=== PATIENT | male | born 1975 | race Caucasian/White ===

== ENCOUNTER 2019-11-14 22:41 | Inpatient (IN) | payer BC ==
[~2019-11-14] VITALS: Ht 188 cm; Wt 104.5 kg
[2019-11-14 23:13] LABS: BASO # 0.1 x10^3/uL (0.0-0.2); BASO % 1 % (0-3); EOS # 0.3 x10^3/uL (0.0-0.7); EOS % 2 % (0-3); HEMATOCRIT 48.9 % (39.0-53.0); HEMOGLOBIN 17.1 g/dL (13.0-17.5); LYMPH # 3.6 x10^3/uL (1.0-4.8); LYMPH % 27 % (24-48); MEAN CORPUSCULAR HEMOGLOBIN 32 pg (25-35); MEAN CORPUSCULAR HGB CONC 35 g/dL (31-37); MEAN CORPUSCULAR VOLUME 90 fL (79-100); MONO # 1.1 x10^3/uL (0.0-1.1); MONO % 8 % (0-9); NEUT # 8.4 x10^3/uL (1.8-7.7); NEUT % 62 % (31-73); PLATELET COUNT 227 x10^3/uL (140-400); RED BLOOD COUNT 5.41 x10^6/uL (4.30-5.70); RED CELL DISTRIBUTION WIDTH 13.1 % (11.5-14.5); WHITE BLOOD COUNT 13.4 x10^3/uL (4.0-11.0)
[2019-11-14 23:23] LABS: PROTHROMBIN TIME PATIENT 12.3 SEC (11.7-14.0)
[2019-11-14 23:27] LABS: CALCIUM 9.6 mg/dL (8.5-10.1); CREATININE 0.8 mg/dL (0.7-1.3); POTASSIUM 3.5 mmol/L (3.5-5.1)
[2019-11-14] MEDS ORDERED: IV NORMAL SALINE 1000ML BAG 1,000 ML IV ONE (23:30)
[2019-11-14] MEDS ORDERED: fentaNYL PF VIAL 100 MCG/2 ML VIAL IVP ONE (23:30)
[2019-11-14] MEDS ORDERED: ONDANSETRON PF 4 MG/2 ML VIAL. IVP ONE (23:30)
[2019-11-14] MEDS ORDERED: FAMOTIDINE 20 MG/2 ML VIAL IVP ONE (23:30)
[2019-11-14 23:33] LABS: ALBUMIN 3.9 g/dL (3.4-5.0); ALBUMIN/GLOBULIN RATIO 1.1 (1.0-1.7); MAGNESIUM 2.2 mg/dL (1.8-2.4); TOTAL BILIRUBIN 0.4 mg/dL (0.2-1.0); TOTAL PROTEIN 7.3 g/dL (6.4-8.2)
[2019-11-14 23:40] LABS: CREATINE KINASE 39 U/L (39-308)
--- NOTE | 2019-11-15 00:42 | RAD ---
Limited abdomen ultrasound HISTORY: Right upper quadrant abdominal pain. FINDINGS: Most of the pancreas, aorta and IVC are obscured by bowel gas shadowing, visualized segments are grossly normal. Increased liver echogenicity likely steatosis. No liver mass or nodularity documented. Hepatopedal portal vein blood flow is present. Tiny gallstones and sludge in the gallbladder. No distention or inflammatory change of the gallbladder documented. No biliary ductal dilation common bile duct diameter is 3 mm. Spleen and left kidney were not evaluated. Right renal length 12.7 cm, no right renal mass or necrosis documented. IMPRESSION: 1. Gallbladder sludge and small gravel-type stones. No inflammatory changes of the gallbladder evident. No biliary ductal dilation. 2. Increased liver echogenicity likely steatosis. Electronically signed by: Anastacio Shearer MD (11/15/2019 12:39 AM) [facility]
[2019-11-15] MEDS ORDERED: IV NORMAL SALINE 1000ML BAG 1,000 ML IV ONE ×2 (01:00→01:30)
[2019-11-15] MEDS ORDERED: HYDROmorphone 2 MG/ML VIAL IV ONE (01:00)
[2019-11-15 01:02] LABS: BILIRUBIN,URINE NEGATIVE (NEG); CLARITY,URINE CLEAR; COLOR,URINE YELLOW; NITRITE,URINE NEGATIVE (NEG); PH,URINE 6.5; PROTEIN,URINE NEGATIVE (NEG-TRACE)
[2019-11-15 01:09] LABS: AMPHETAMINE/METHAMPHETAMINE NEG (NEG); BARBITURATES NEG (NEG); BENZODIAZEPINES NEG (NEG); CANNABINOIDS NEG (NEG); COCAINE NEG (NEG); METHADONE NEG (NEG); OPIATES NEG (NEG); PHENCYCLIDINE NEG (NEG)
[2019-11-15 01:10] LABS: BACTERIA,URINE 0 /HPF (0-FEW); RBC,URINE RARE /HPF (0-2); SQUAMOUS EPITHELIAL CELL,UR OCC /LPF; WBC,URINE RARE /HPF (0-4)
--- NOTE | 2019-11-15 01:13 | PHYS DOC ---
Past Medical History Past Medical History: Diabetes-Type II, High Cholesterol, Hypertension Past Surgical History: Tonsillectomy Alcohol Use: None Drug Use: None Adult General Chief Complaint Chief Complaint: ABDOMINAL PAIN HPI HPI Patient is a 44 year old male with history of diabetes type 2, hypertension, high cholesterol, who presents to the ED today complaining of 9 out of 10 right upper quadrant abdominal pain radiating to his flank region into his right shoulder, symptoms began 3 days ago. Patient denies any nausea/ vomiting. He reports symptoms are worse after eating. Denies anything relieving the symptoms. He states is usually tough on pain but this pain has gotten so bad he could not take it anymore. Review of Systems Review of Systems Constitutional: Denies fever or chills [] Eyes: Denies change in visual acuity, redness, or eye pain [] HENT: Denies nasal congestion or sore throat [] Respiratory: Denies cough or shortness of breath [] Cardiovascular: No additional information not addressed in HPI [] GI: Reports right upper quadrant abdominal pain, denies nausea, vomiting, bloody stools or diarrhea [] : Denies dysuria or hematuria [] Musculoskeletal: Denies back pain or joint pain [] Integument: Denies rash or skin lesions [] Neurologic: Denies headache, focal weakness or sensory changes [] All other systems were reviewed and found to be within normal limits, except as documented in this note. Current Medications Current Medications Current Medications Medications (Trade) Dose Ordered Sig/Alta Start Time Stop Time Status Last Admin Dose Admin Famotidine (Pepcid Vial) 20 mg 1X ONCE 11/14/19 23:30 11/14/19 23:31 DC 11/14/19 23:17 20 MG Fentanyl Citrate (Fentanyl 2ml Vial) 50 mcg 1X ONCE 11/14/19 23:30 11/14/19 23:31 DC 11/14/19 23:17 50 MCG Hydromorphone HCl (Dilaudid) 1 mg 1X ONCE 11/15/19 01:00 11/15/19 01:01 DC 11/15/19 00:58 1 MG Ondansetron HCl (Zofran) 4 mg 1X ONCE 11/14/19 23:30 11/14/19 23:31 DC 11/14/19 23:16 4 MG Piperacillin Sod/ Tazobactam Sod 3.375 gm/Sodium Chloride 50 ml @ 100 mls/hr 1X ONCE 11/15/19 01:30 11/15/19 01:59 Sodium Chloride 1,000 ml @ 1,000 mls/hr 1X ONCE 11/15/19 01:00 11/15/19 01:59 Allergies Allergies Allergies Coded Allergies Type Severity Reaction Last Updated Verified No Known Drug Allergies 11/14/19 No Physical Exam Physical Exam Constitutional: Well developed, well nourished, no acute distress, non-toxic appearance. [] HENT: Normocephalic, atraumatic, bilateral external ears normal, oropharynx moist, no oral exudates, nose normal. [] Eyes: PERRLA, EOMI, conjunctiva normal, no discharge. [] Neck: Normal range of motion, no tenderness, supple, no stridor. [] Cardiovascular:Heart rate regular rhythm, no murmur [] Lungs & Thorax: Bilateral breath sounds clear to auscultation [] Abdomen: Bowel sounds normal, soft, moderate tenderness on palpation of the epigastric region as well as the right upper quadrant, no right lower quadrant or left lower quadrant or left upper quadrant tenderness, positive Dyer sign, negative psoas sign, negative obturator sign, negative Rovsing sign, no masses, no pulsatile masses. [] Skin: Warm, dry, no erythema, no rash. [] Back: No tenderness, no CVA tenderness. [] Extremities: No tenderness, no cyanosis, no clubbing, ROM intact, no edema. [] Neurologic: Alert and oriented X 3, normal motor function, normal sensory function, no focal deficits noted. [] Psychologic: Affect normal, judgement normal, mood normal. [] Current Patient Data Vital Signs Vital Signs Date Time Temp Pulse Resp B/P (MAP) Pulse Ox O2 Delivery O2 Flow Rate FiO2 11/15/19 00:58 16 96 Room Air 11/14/19 23:00 98.4 100 165/92 (116) 98.4 Lab Values Laboratory Tests Test 11/14/19 23:00 11/14/19 23:06 Prothrombin Time 12.3 SEC (11.7-14.0) Prothrombin Time INR 0.9 (0.8-1.1) Sodium Level 141 mmol/L (136-145) Potassium Level 3.5 mmol/L (3.5-5.1) Chloride Level 101 mmol/L (98-107) Carbon Dioxide Level 30 mmol/L (21-32) Anion Gap 10 (6-14) Blood Urea Nitrogen 14 mg/dL (8-26) Creatinine 0.8 mg/dL (0.7-1.3) Estimated GFR (Cockcroft-Gault) 105.0 BUN/Creatinine Ratio 18 (6-20) Glucose Level 261 mg/dL (70-99) H Calcium Level 9.6 mg/dL (8.5-10.1) Magnesium Level 2.2 mg/dL (1.8-2.4) Total Bilirubin 0.4 mg/dL (0.2-1.0) Aspartate Amino Transferase (AST) 14 U/L (15-37) L Alanine Aminotransferase (ALT) 31 U/L (16-63) Alkaline Phosphatase 92 U/L (46-116) Creatine Kinase 39 U/L (39-308) Creatine Kinase MB (Mass) 0.8 ng/mL (0.0-3.6) Creatine Kinase MB Relative Index % (0-4) Troponin I Quantitative < 0.017 ng/mL (0.000-0.055) DJ-Bxc-B-Type Natriuretic Peptide 31 pg/mL (0-124) Total Protein 7.3 g/dL (6.4-8.2) Albumin 3.9 g/dL (3.4-5.0) Albumin/Globulin Ratio 1.1 (1.0-1.7) Lipase 76296 U/L (73-393) H Thyroid Stimulating Hormone (TSH) 2.591 uIU/mL (0.358-3.74) Ethyl Alcohol Level < 10 mg/dL (0-10) White Blood Count 13.4 x10^3/uL (4.0-11.0) H Red Blood Count 5.41 x10^6/uL (4.30-5.70) Hemoglobin 17.1 g/dL (13.0-17.5) Hematocrit 48.9 % (39.0-53.0) Mean Corpuscular Volume 90 fL (79-100) Mean Corpuscular Hemoglobin 32 pg (25-35) Mean Corpuscular Hemoglobin Concent 35 g/dL (31-37) Red Cell Distribution Width 13.1 % (11.5-14.5) Platelet Count 227 x10^3/uL (140-400) Neutrophils (%) (Auto) 62 % (31-73) Lymphocytes (%) (Auto) 27 % (24-48) Monocytes (%) (Auto) 8 % (0-9) Eosinophils (%) (Auto) 2 % (0-3) Basophils (%) (Auto) 1 % (0-3) Neutrophils # (Auto) 8.4 x10^3/uL (1.8-7.7) H Lymphocytes # (Auto) 3.6 x10^3/uL (1.0-4.8) Monocytes # (Auto) 1.1 x10^3/uL (0.0-1.1) Eosinophils # (Auto) 0.3 x10^3/uL (0.0-0.7) Basophils # (Auto) 0.1 x10^3/uL (0.0-0.2) Laboratory Tests 11/14/19 23:06 Laboratory Tests 11/14/19 23:00 EKG EKG [] Radiology/Procedures Radiology/Procedures []PROCEDURE: ABDOMEN LTD Limited abdomen ultrasound HISTORY: Right upper quadrant abdominal pain. FINDINGS: Most of the pancreas, aorta and IVC are obscured by bowel gas shadowing, visualized segments are grossly normal. Increased liver echogenicity likely steatosis. No liver mass or nodularity documented. Hepatopedal portal vein blood flow is present. Tiny gallstones and sludge in the gallbladder. No distention or inflammatory change of the gallbladder documented. No biliary ductal dilation common bile duct diameter is 3 mm. Spleen and left kidney were not evaluated. Right renal length 12.7 cm, no right renal mass or necrosis documented. IMPRESSION: 1. Gallbladder sludge and small gravel-type stones. No inflammatory changes of the gallbladder evident. No biliary ductal dilation. 2. Increased liver echogenicity likely steatosis. Electronically signed by: Joana Shearer MD (11/15/2019 12:39 AM) [facility] DICTATED and SIGNED BY: JOANA SHEARER MD DATE: 11/15/19 0039 Course & Med Decision Making Course & Med Decision Making Pertinent Labs and Imaging studies reviewed. (See chart for details) This is a 44-year-old male patient presented to the ED today complaining of right upper quadrant abdominal pain for 3 days. CBC with a WBC of 13.4, CMP with glucose of 261 anion gap is normal. Right upper quadrant abdominal ultrasound was noted for gallbladder sludge as well as gallstones. Lipase 26,795. IV fluids were initiated in the emergency room, 2 L ordered. Patient was given fentanyl with no relief, Dilaudid was ordered Spoke with Dr. Perez who accepted patient for admission Spoke with Dr. Martinez who will follow-up with patient in the morning. Nothing by mouth We did put a call for GI no return call yet. Dragon Disclaimer Dragon Disclaimer This electronic medical record was generated, in whole or in part, using a voice recognition dictation system. Departure Departure Impression: Primary Impression: Gallstone pancreatitis Disposition: HOME, SELF-CARE Condition: STABLE Referrals: KYLEE PEREZ MD (PCP) JULIO MARTIN NON DESTRUCTIVE EVALUATION SPECIALIST Nov 15, 2019 01:13
[2019-11-15] MEDS ORDERED: HYDROmorphone 2 MG/ML VIAL IV PRN (01:15)
[2019-11-15] MEDS ORDERED: ONDANSETRON PF 4 MG/2 ML VIAL. IV PRN (01:15)
[2019-11-15] MEDS ORDERED: PIPERACILLIN/TAZOBACTAM 3.375 GM in IV NORMAL SALINE 50ML 50 ML IV ONE (01:30)
--- NOTE | 2019-11-15 03:54 | NUR ---
ADMISSION NOTE The patient, JOELLE GALINDO, 44 y/o, M admitted by KYLEE PEREZ MD, was given written information regarding hospital policies, unit procedures and contact persons. Pt arrived to room 560 via wheelchair accompanied by ED staff. Flu shot offered and declined at this time. Pt resting comfortably in bed, VSS, no further complaints at this time. Valuables were checked and left at bedside with patient.
[2019-11-15 05:26] VITALS: BP 168/115
[2019-11-15 07:59] VITALS: BP 115/65
--- NOTE | 2019-11-15 10:41 | EKG ---
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
--- NOTE | 2019-11-15 10:46 | HP ---
ADMIT DATE: 11/15/2019 CHIEF COMPLAINT AND HISTORY OF PRESENT ILLNESS: This 44-year-old white male admitted through the Emergency Room with pancreatitis, felt due to gallstone pancreatitis by the Emergency Room. He had been having 2 days of severe upper abdominal pain radiating into his back, worse with eating. He thought it was bad gas. He presented to the Emergency Room where he was found to have a lipase through the roof and ultrasound showing gallbladder sludge and small gravel type stones. No inflammatory changes of the gallbladder were evident. No biliary ductal dilatation and increased liver echogenicity, likely steatosis noted on the ultrasound. White count was 13,400 with a left shift. Lipase was 26,795. Blood sugar was 261 on presentation. Troponin was negative. INR was negative. Urinalysis unremarkable. Toxicology screen negative and the patient was admitted with n.p.o. status, IV hydration and pain control. PAST MEDICAL HISTORY: Remarkable for type 2 diabetes, hypertension, hyperlipidemia. PAST SURGICAL HISTORY: Remarkable for tonsillectomy. SOCIAL HISTORY: Unremarkable. The patient is basically a lifetime nondrinker. FAMILY HISTORY: Noncontributory. MEDICATIONS: Brought with the patient listed on the computer and have been addressed. ALLERGIES: He has no known drug allergies. REVIEW OF SYSTEMS: Remarkable for the abdominal pain, which he describes as a squeezing, kind of pain again going through the back. Denies any cough, shortness of breath, changes in bowel or bladder. Denies any vomiting with it, although he has felt somewhat nauseated with it at times. Denies any urinary changes such as dysuria, frequency, urgency, hematuria. Denies any skin rash. PHYSICAL EXAMINATION: GENERAL: He is well-developed, well-nourished white male, who appears relatively comfortable, was under the influence of IV pain medicine. and children are present. VITAL SIGNS: Stable. He is afebrile. HEAD, EYES, EARS, NOSE AND THROAT: Unremarkable. There is no icterus. NECK: Supple, without adenopathy or thyromegaly. CHEST: Clear to auscultation and percussion. HEART: Regular rate and rhythm without S3, S4 or murmur. ABDOMEN: Reveals epigastric tenderness as well as some right upper quadrant tenderness. No obvious hepatosplenomegaly or masses are noted. EXTREMITIES: Without cyanosis, clubbing, edema. NEUROLOGIC: He is intact. IMPRESSION: 1. Pancreatitis. 2. Hypertension. 3. Hyperlipidemia. 4. Diabetes. PLAN: The patient has been admitted. I am going to ask GI to see the patient in consultation as well as surgery. He will have ongoing n.p.o. status, IV pain medicine, daily labs and will be monitored, managed and treated appropriately. CHAPIS PAREDES MD DR: PATRICK/vidhi JOB#: [id number] / [id number] KYLEE Shultz MD
[2019-11-15 11:59] VITALS: BP 111/70
--- NOTE | 2019-11-15 14:43 | PDOC2 ---
CONSULT Date of Consult Date of Consult DATE: 11/15/19 TIME: 14:38 Reason for Consult Reason for Consult: Abdominal pain, elevated lipase History of Present Illness Reason for Visit: This is a 44-year-old gentleman with a history of diabetes but no prior history of abdominal pain, dyspepsia, gallstones or pancreatitis. He does not drink alcohol. He was not aware of any liver disease problems in the past. He had the sudden onset of abdominal pain radiating through to the back over the past 2 days. Associated with nausea. Fevers. No jaundice. No new medications. Initial labs show an elevated lipase of 26,000 and ultrasound reveals some tiny gallstones but no evidence for common bile duct obstruction. Also showed some fatty liver changes. liver function studies were normal Past Medical History Endocrine: Diabetes Current Problem List Problem List Problems Medical Problems: (1) Gallstone pancreatitis Status: Acute Current Medications Current Medications Current Medications Ondansetron HCl (Zofran) 4 mg 1X ONCE IVP Last administered on 11/14/19at 23:16; Start 11/14/19 at 23:30; Stop 11/14/19 at 23:31; Status DC Sodium Chloride 1,000 ml @ 1,000 mls/hr 1X ONCE IV Last administered on 11/14/19at 23:16; Start 11/14/19 at 23:30; Stop 11/15/19 at 00:29; Status DC Fentanyl Citrate (Fentanyl 2ml Vial) 50 mcg 1X ONCE IVP Last administered on 11/14/19at 23:17; Start 11/14/19 at 23:30; Stop 11/14/19 at 23:31; Status DC Famotidine (Pepcid Vial) 20 mg 1X ONCE IVP Last administered on 11/14/19at 23:17; Start 11/14/19 at 23:30; Stop 11/14/19 at 23:31; Status DC Hydromorphone HCl (Dilaudid) 1 mg 1X ONCE IV Last administered on 11/15/19at 00:58; Start 11/15/19 at 01:00; Stop 11/15/19 at 01:01; Status DC Sodium Chloride 1,000 ml @ 1,000 mls/hr 1X ONCE IV Last administered on 11/15/19at 01:42; Start 11/15/19 at 01:00; Stop 11/15/19 at 01:59; Status DC Piperacillin Sod/ Tazobactam Sod 3.375 gm/Sodium Chloride 50 ml @ 100 mls/hr 1X ONCE IV Last administered on 11/15/19at 01:42; Start 11/15/19 at 01:30; Stop 11/15/19 at 01:59; Status DC Ondansetron HCl (Zofran) 4 mg PRN Q8HRS PRN IV NAUSEA/VOMITING 1ST CHOICE; Start 11/15/19 at 01:15; Stop 11/16/19 at 01:14 Hydromorphone HCl (Dilaudid) 1 mg PRN Q3HRS PRN IV SEVERE PAIN 7-10 Last administered on 11/15/19at 03:17; Start 11/15/19 at 01:15 Sodium Chloride 1,000 ml @ 125 mls/hr 1X ONCE IV Last administered on 11/15/19at 03:16; Start 11/15/19 at 01:30; Stop 11/15/19 at 09:29; Status DC Allergies Allergies: Coded Allergies: No Known Drug Allergies (Unverified , 11/14/19) Physical Exam General: Alert, Oriented X3 HEENT: Atraumatic, PERRLA Lungs: Clear to auscultation Heart: Regular rate, Normal S1, Normal S2 Abdomen: Normal bowel sounds, Soft, No hepatosplenomegaly, Other (tender in the periumbilical region) Extremities: No clubbing, No cyanosis Psych/Mental Status: Mental status NL Vitals VITALS Vital Signs Date Time Temp Pulse Resp B/P (MAP) Pulse Ox O2 Delivery O2 Flow Rate FiO2 11/15/19 11:59 98.9 89 18 111/70 (84) 92 Room Air 98.9 Labs Labs Laboratory Tests Test 11/14/19 23:00 11/14/19 23:06 11/15/19 00:20 11/15/19 03:00 Prothrombin Time 12.3 SEC (11.7-14.0) Prothromb Time International Ratio 0.9 (0.8-1.1) Sodium Level 141 mmol/L (136-145) Potassium Level 3.5 mmol/L (3.5-5.1) Chloride Level 101 mmol/L (98-107) Carbon Dioxide Level 30 mmol/L (21-32) Anion Gap 10 (6-14) Blood Urea Nitrogen 14 mg/dL (8-26) Creatinine 0.8 mg/dL (0.7-1.3) Estimated GFR (Cockcroft-Gault) 105.0 BUN/Creatinine Ratio 18 (6-20) Glucose Level 261 mg/dL (70-99) Calcium Level 9.6 mg/dL (8.5-10.1) Magnesium Level 2.2 mg/dL (1.8-2.4) Total Bilirubin 0.4 mg/dL (0.2-1.0) Aspartate Amino Transf (AST/SGOT) 14 U/L (15-37) Alanine Aminotransferase (ALT/SGPT) 31 U/L (16-63) Alkaline Phosphatase 92 U/L (46-116) Creatine Kinase 39 U/L (39-308) Creatine Kinase MB (Mass) 0.8 ng/mL (0.0-3.6) Creatine Kinase MB Relative Index % (0-4) Troponin I Quantitative < 0.017 ng/mL (0.000-0.055) VV-Qpa-I-Type Natriuretic Peptide 31 pg/mL (0-124) Total Protein 7.3 g/dL (6.4-8.2) Albumin 3.9 g/dL (3.4-5.0) Albumin/Globulin Ratio 1.1 (1.0-1.7) Lipase 88189 U/L (73-393) Thyroid Stimulating Hormone (TSH) 2.591 uIU/mL (0.358-3.74) Ethyl Alcohol Level < 10 mg/dL (0-10) White Blood Count 13.4 x10^3/uL (4.0-11.0) Red Blood Count 5.41 x10^6/uL (4.30-5.70) Hemoglobin 17.1 g/dL (13.0-17.5) Hematocrit 48.9 % (39.0-53.0) Mean Corpuscular Volume 90 fL (79-100) Mean Corpuscular Hemoglobin 32 pg (25-35) Mean Corpuscular Hemoglobin Concent 35 g/dL (31-37) Red Cell Distribution Width 13.1 % (11.5-14.5) Platelet Count 227 x10^3/uL (140-400) Neutrophils (%) (Auto) 62 % (31-73) Lymphocytes (%) (Auto) 27 % (24-48) Monocytes (%) (Auto) 8 % (0-9) Eosinophils (%) (Auto) 2 % (0-3) Basophils (%) (Auto) 1 % (0-3) Neutrophils # (Auto) 8.4 x10^3/uL (1.8-7.7) Lymphocytes # (Auto) 3.6 x10^3/uL (1.0-4.8) Monocytes # (Auto) 1.1 x10^3/uL (0.0-1.1) Eosinophils # (Auto) 0.3 x10^3/uL (0.0-0.7) Basophils # (Auto) 0.1 x10^3/uL (0.0-0.2) Urine Collection Type Unknown Urine Color Yellow Urine Clarity Clear Urine pH 6.5 Urine Specific [place] 1.010 Urine Protein Negative mg/dL (NEG-TRACE) Urine Glucose (UA) 250 mg/dL (NEG) Urine Ketones (Stick) Negative mg/dL (NEG) Urine Blood Negative (NEG) Urine Nitrite Negative (NEG) Urine Bilirubin Negative (NEG) Urine Urobilinogen Dipstick 1.0 mg/dL (0.2 mg/dL) Urine Leukocyte Esterase Negative (NEG) Urine RBC Rare /HPF (0-2) Urine WBC Rare /HPF (0-4) Urine Squamous Epithelial Cells Occ /LPF Urine Bacteria 0 /HPF (0-FEW) Urine Opiates Screen Neg (NEG) Urine Methadone Screen Neg (NEG) Urine Barbiturates Neg (NEG) Urine Phencyclidine Screen Neg (NEG) Urine Amphetamine/Methamphetamine Neg (NEG) Urine Benzodiazepines Screen Neg (NEG) Urine Cocaine Screen Neg (NEG) Urine Cannabinoids Screen Neg (NEG) Urine Ethyl Alcohol Neg (NEG) Lactic Acid Level 1.6 mmol/L (0.4-2.0) Test 11/15/19 12:42 Glucose (Fingerstick) 138 mg/dL (70-99) Laboratory Tests Test 11/14/19 23:00 11/14/19 23:06 11/15/19 00:20 11/15/19 03:00 Prothrombin Time 12.3 SEC (11.7-14.0) Prothromb Time International Ratio 0.9 (0.8-1.1) Sodium Level 141 mmol/L (136-145) Potassium Level 3.5 mmol/L (3.5-5.1) Chloride Level 101 mmol/L (98-107) Carbon Dioxide Level 30 mmol/L (21-32) Anion Gap 10 (6-14) Blood Urea Nitrogen 14 mg/dL (8-26) Creatinine 0.8 mg/dL (0.7-1.3) Estimated GFR (Cockcroft-Gault) 105.0 BUN/Creatinine Ratio 18 (6-20) Glucose Level 261 mg/dL (70-99) Calcium Level 9.6 mg/dL (8.5-10.1) Magnesium Level 2.2 mg/dL (1.8-2.4) Total Bilirubin 0.4 mg/dL (0.2-1.0) Aspartate Amino Transf (AST/SGOT) 14 U/L (15-37) Alanine Aminotransferase (ALT/SGPT) 31 U/L (16-63) Alkaline Phosphatase 92 U/L (46-116) Creatine Kinase 39 U/L (39-308) Creatine Kinase MB (Mass) 0.8 ng/mL (0.0-3.6) Creatine Kinase MB Relative Index % (0-4) Troponin I Quantitative < 0.017 ng/mL (0.000-0.055) ER-Xix-V-Type Natriuretic Peptide 31 pg/mL (0-124) Total Protein 7.3 g/dL (6.4-8.2) Albumin 3.9 g/dL (3.4-5.0) Albumin/Globulin Ratio 1.1 (1.0-1.7) Lipase 91277 U/L (73-393) Thyroid Stimulating Hormone (TSH) 2.591 uIU/mL (0.358-3.74) Ethyl Alcohol Level < 10 mg/dL (0-10) White Blood Count 13.4 x10^3/uL (4.0-11.0) Red Blood Count 5.41 x10^6/uL (4.30-5.70) Hemoglobin 17.1 g/dL (13.0-17.5) Hematocrit 48.9 % (39.0-53.0) Mean Corpuscular Volume 90 fL (79-100) Mean Corpuscular Hemoglobin 32 pg (25-35) Mean Corpuscular Hemoglobin Concent 35 g/dL (31-37) Red Cell Distribution Width 13.1 % (11.5-14.5) Platelet Count 227 x10^3/uL (140-400) Neutrophils (%) (Auto) 62 % (31-73) Lymphocytes (%) (Auto) 27 % (24-48) Monocytes (%) (Auto) 8 % (0-9) Eosinophils (%) (Auto) 2 % (0-3) Basophils (%) (Auto) 1 % (0-3) Neutrophils # (Auto) 8.4 x10^3/uL (1.8-7.7) Lymphocytes # (Auto) 3.6 x10^3/uL (1.0-4.8) Monocytes # (Auto) 1.1 x10^3/uL (0.0-1.1) Eosinophils # (Auto) 0.3 x10^3/uL (0.0-0.7) Basophils # (Auto) 0.1 x10^3/uL (0.0-0.2) Urine Collection Type Unknown Urine Color Yellow Urine Clarity Clear Urine pH 6.5 Urine Specific [place] 1.010 Urine Protein Negative mg/dL (NEG-TRACE) Urine Glucose (UA) 250 mg/dL (NEG) Urine Ketones (Stick) Negative mg/dL (NEG) Urine Blood Negative (NEG) Urine Nitrite Negative (NEG) Urine Bilirubin Negative (NEG) Urine Urobilinogen Dipstick 1.0 mg/dL (0.2 mg/dL) Urine Leukocyte Esterase Negative (NEG) Urine RBC Rare /HPF (0-2) Urine WBC Rare /HPF (0-4) Urine Squamous Epithelial Cells Occ /LPF Urine Bacteria 0 /HPF (0-FEW) Urine Opiates Screen Neg (NEG) Urine Methadone Screen Neg (NEG) Urine Barbiturates Neg (NEG) Urine Phencyclidine Screen Neg (NEG) Urine Amphetamine/Methamphetamine Neg (NEG) Urine Benzodiazepines Screen Neg (NEG) Urine Cocaine Screen Neg (NEG) Urine Cannabinoids Screen Neg (NEG) Urine Ethyl Alcohol Neg (NEG) Lactic Acid Level 1.6 mmol/L (0.4-2.0) Test 11/15/19 12:42 Glucose (Fingerstick) 138 mg/dL (70-99) Images Images Ultrasound Assessment/Plan Assessment/Plan Abdominal pain, sudden onset with no prior history of abdominal pain symptoms. Clearly elevated lipase suggest pancreatitis as the source although imaging with ultrasound was limited. Reveal tiny gallstones but no evidence for common bile duct obstruction and also suggested fatty liver. AbNormal lipase 26,000. Normal liver function studies. Ultrasound reveals gallstones without common bile duct obstruction or dilation but the imaging of the pancreas was limited Plan: IVF and monitor labs Pain control- I increased Dilaudid to q 2hr but may need to change further- will defer to Dr. Burris CT a/p to better evaluate the pancreas Surgery consult FARZANEH REED MD Nov 15, 2019 14:43
[2019-11-15] MEDS ORDERED: ACETAMINOPHEN 500 MG TABLET PO PRN (14:45)
[2019-11-15 15:59] VITALS: BP 123/73
[2019-11-15] MEDS ORDERED: IOHEXOL 300 MG/ML 100ML VIAL. IV ONE (17:45)
[2019-11-15] MEDS ORDERED: IOHEXOL 240 MG/ML 50ML VIAL. PO ONE (17:45)
[2019-11-15] MEDS ORDERED: IOHEXOL 240 MG/ML 50ML VIAL. ONE (17:52)
[2019-11-15] MEDS ORDERED: IOHEXOL 300 MG/ML 100ML VIAL. ONE (17:53)
[2019-11-15] MEDS ORDERED: CONTRAST GIVEN. MC PRN (18:00)
[2019-11-15 19:00] VITALS: BP 109/61
--- NOTE | 2019-11-15 22:10 | RAD ---
EXAM: CT Abdomen and Pelvis with IV contrast CLINICAL HISTORY: abd pain, elevated lipase. COMPARISON: none TECHNIQUE: Helical CT of the abdomen and pelvis was performed following the administration of intravenous contrast. Axial, coronal and sagittal reformatted images were generated. PQRS compliance statement - One or more of the following individualized dose reduction techniques were utilized for this study: 1. Automated exposure control 2. Adjustment of the mA and/or kV according to patient size 3. Use of iterative reconstruction technique FINDINGS: Lower chest: Linear and wedge-shaped opacities in the left greater than right lung bases likely scarring/atelectasis. Abdomen and Pelvis: Hepatic hypoattenuation likely fatty liver. Gallbladder is contracted. No biliary duct dilatation. Spleen is unremarkable. Small splenule is seen. Adrenal glands are normal. Mild infiltration about the pancreatic head and body may be seen with acute pancreatitis. Symmetric enhancement. No definite peripancreatic fluid collection. Large volume colonic stool content is seen. Appendix is normal. No small or large bowel dilatation. No evidence for bowel obstruction. Symmetric nephrograms. No focal renal lesion. No hydronephrosis. No hydroureter. Bladder is unremarkable. No abdominal or pelvic lymphadenopathy is seen. Retroaortic left renal vein. Aortic calcifications are seen. No abdominal or pelvic ascites. Bones: No aggressive osseous lesion is seen. IMPRESSION: 1. Mild infiltration about the pancreatic head and body may be seen with acute pancreatitis. No definite loculated fluid collection or pancreatic hypoenhancement is seen. 2. No significant pleural effusion. Linear and wedge-shaped lung base opacities likely atelectasis/scarring. Electronically signed by: Wilfred Stinson MD (11/15/2019 10:07 PM) [facility]
[2019-11-15] MEDS ORDERED: IV NORMAL SALINE 1000ML BAG 1,000 ML IV SCH (22:45)
[2019-11-15] MEDS: HYDROmorphone 2 MG/ML VIAL IV PRN (22:54)
[2019-11-15 23:00] VITALS: BP 110/69
[2019-11-16 03:00] VITALS: BP 119/79
[2019-11-16] MEDS: HYDROmorphone 2 MG/ML VIAL IV PRN ×2 (03:36→07:51)
[2019-11-16 04:47] LABS: BASO % 0 % (0-3); EOS # 0.2 x10^3/uL (0.0-0.7); EOS % 2 % (0-3); HEMATOCRIT 43.4 % (39.0-53.0); HEMOGLOBIN 15.1 g/dL (13.0-17.5); LYMPH # 2.7 x10^3/uL (1.0-4.8); LYMPH % 26 % (24-48); MEAN CORPUSCULAR HEMOGLOBIN 32 pg (25-35); MEAN CORPUSCULAR HGB CONC 35 g/dL (31-37); MEAN CORPUSCULAR VOLUME 91 fL (79-100); MONO # 0.7 x10^3/uL (0.0-1.1); MONO % 7 % (0-9); NEUT # 6.8 x10^3/uL (1.8-7.7); NEUT % 65 % (31-73); PLATELET COUNT 192 x10^3/uL (140-400); RED BLOOD COUNT 4.76 x10^6/uL (4.30-5.70); RED CELL DISTRIBUTION WIDTH 12.8 % (11.5-14.5); WHITE BLOOD COUNT 10.5 x10^3/uL (4.0-11.0)
[2019-11-16 05:19] LABS: ALBUMIN 3.1 g/dL (3.4-5.0); CALCIUM 8.9 mg/dL (8.5-10.1); CREATININE 0.7 mg/dL (0.7-1.3); GFR 122.5; POTASSIUM 3.5 mmol/L (3.5-5.1); TOTAL BILIRUBIN 0.8 mg/dL (0.2-1.0); TOTAL PROTEIN 6.2 g/dL (6.4-8.2)
[2019-11-16] MEDS ORDERED: ATOR20TA58 PO (06:58)
[2019-11-16 07:00] VITALS: BP 137/85
[2019-11-16] MEDS ORDERED: METF10007 PO (07:00)
[2019-11-16] MEDS ORDERED: GLIM4TAB8 PO (07:00)
[2019-11-16] MEDS ORDERED: LISI1TAB23 PO (07:01)
[2019-11-16] MEDS ORDERED: DEXTROSE 50% 25 GM / 50ML DISP.SYRIN. IV PRN (08:30)
[2019-11-16] MEDS ORDERED: IV DEXTROSE 5% 250 ML BAG. IV PRN (08:30)
--- NOTE | 2019-11-16 08:53 | PDOC ---
Provider Note Provider Note NO TEMP, BOP OK OFF HOME MEDS- [facility] / LAST A1C 9.6 ON AMARYL/METFORMIN- WILL ADD LOW DOSE LANTUS AND FOLLOW- LIPASE MUCH BETTER, taS STILL GOOD/NO SIGN OF OBSTRUCTION- SURG CONSULT PENDING, WILL NEED MARK WHEN STABLE- CHECK TRIGS RE ? SOURCE OF PANCREATITIS ALSO- KYLEE PEREZ MD Nov 16, 2019 08:53
[2019-11-16] MEDS: POTASSIUM CL 20MEQ D5-0.45NACL 1,000 ML IV SCH ×2 (09:14→20:30)
[2019-11-16] MEDS: KETOROLAC 30 MG/ML VIAL. IVP PRN ×2 (09:15→17:46)
[2019-11-16 09:20] LABS: CHOLESTEROL/HDL RATIO 3.8
--- NOTE | 2019-11-16 09:51 | PDOC2 ---
JAIME DE ANDA RIBBON CLEANER 11/16/19 0951: CONSULT Date of Consult Date of Consult DATE: 11/16/19 TIME: 09:45 Reason for Consult Reason for Consult: gallstone pancreatitis Referring Physician Referring Physician: ER Identification/Chief Complaint Chief Complaint abdominal pain Source Source: Chart review, Patient History of Present Illness Reason for Visit: Here with abdominal pain, nausea, and emesis. Pain radiated to back. Currently pain is mostly epigastric. He is complaining of a migraine. Asking about liquids Past Medical History Endocrine: Diabetes Past Surgical History Past Surgical History: No pertinent history Family History Family History: Other (noncontributory to current illness ) Social History <1 pack per day ALCOHOL: none Drugs: None Lives: with Family Current Problem List Problem List Problems Medical Problems: (1) Gallstone pancreatitis Status: Acute Current Medications Current Medications Current Medications Ondansetron HCl (Zofran) 4 mg 1X ONCE IVP Last administered on 11/14/19at 23:16; Start 11/14/19 at 23:30; Stop 11/14/19 at 23:31; Status DC Sodium Chloride 1,000 ml @ 1,000 mls/hr 1X ONCE IV Last administered on 11/14/19at 23:16; Start 11/14/19 at 23:30; Stop 11/15/19 at 00:29; Status DC Fentanyl Citrate (Fentanyl 2ml Vial) 50 mcg 1X ONCE IVP Last administered on 11/14/19at 23:17; Start 11/14/19 at 23:30; Stop 11/14/19 at 23:31; Status DC Famotidine (Pepcid Vial) 20 mg 1X ONCE IVP Last administered on 11/14/19at 23:17; Start 11/14/19 at 23:30; Stop 11/14/19 at 23:31; Status DC Hydromorphone HCl (Dilaudid) 1 mg 1X ONCE IV Last administered on 11/15/19at 00:58; Start 11/15/19 at 01:00; Stop 11/15/19 at 01:01; Status DC Sodium Chloride 1,000 ml @ 1,000 mls/hr 1X ONCE IV Last administered on 11/15/19at 01:42; Start 11/15/19 at 01:00; Stop 11/15/19 at 01:59; Status DC Piperacillin Sod/ Tazobactam Sod 3.375 gm/Sodium Chloride 50 ml @ 100 mls/hr 1X ONCE IV Last administered on 11/15/19at 01:42; Start 11/15/19 at 01:30; Stop 11/15/19 at 01:59; Status DC Ondansetron HCl (Zofran) 4 mg PRN Q8HRS PRN IV NAUSEA/VOMITING 1ST CHOICE; Start 11/15/19 at 01:15; Stop 11/16/19 at 01:14; Status DC Hydromorphone HCl (Dilaudid) 1 mg PRN Q3HRS PRN IV SEVERE PAIN 7-10 Last administered on 11/15/19at 03:17; Start 11/15/19 at 01:15; Stop 11/15/19 at 14:38; Status DC Sodium Chloride 1,000 ml @ 125 mls/hr 1X ONCE IV Last administered on 11/15/19at 03:16; Start 11/15/19 at 01:30; Stop 11/15/19 at 09:29; Status DC Hydromorphone HCl (Dilaudid) 1 mg PRN Q2HR PRN IV SEVERE PAIN 7-10 Last administered on 11/16/19at 07:51; Start 11/15/19 at 14:45 Acetaminophen (Tylenol) 500 mg PRN Q8HRS PRN PO HEADACHE Last administered on 11/15/19at 14:57; Start 11/15/19 at 14:45 Iohexol (Omnipaque 240 Mg/ml) 30 ml 1X ONCE PO Last administered on 11/15/19at 17:45; Start 11/15/19 at 17:45; Stop 11/15/19 at 17:52; Status DC Iohexol (Omnipaque 300 Mg/ml) 75 ml 1X ONCE IV Last administered on 11/15/19at 19:28; Start 11/15/19 at 17:45; Stop 11/15/19 at 17:52; Status DC Info (CONTRAST GIVEN -- Rx MONITORING) 1 each PRN DAILY PRN MC SEE COMMENTS; Start 11/15/19 at 18:00; Stop 11/17/19 at 17:59 Iohexol (Omnipaque 240 Mg/ml) 50 ml STK-MED ONCE .ROUTE ; Start 11/15/19 at 17:52; Stop 11/15/19 at 17:53; Status DC Iohexol (Omnipaque 300 Mg/ml) 100 ml STK-MED ONCE .ROUTE ; Start 11/15/19 at 17:53; Stop 11/15/19 at 17:53; Status DC Sodium Chloride 1,000 ml @ 100 mls/hr Q10H IV Last administered on 11/15/19at 22:49; Start 11/15/19 at 22:45; Stop 11/16/19 at 08:35; Status DC Insulin Glargine (Lantus Syringe) 20 unit DAILY10 SQ ; Start 11/16/19 at 10:00 Dextrose (Dextrose 50%-Water Syringe) 12.5 gm PRN Q15MIN PRN IV SEE COMMENTS; Start 11/16/19 at 08:30 Dextrose (Iv Dextrose 5%) 250 ml PRN Q15MIN PRN IV SEE COMMENTS; Start 11/16/19 at 08:30 Potassium Chloride/Dextrose/ Sod Cl 1,000 ml @ 100 mls/hr Q10H IV Last administered on 11/16/19at 09:14; Start 11/16/19 at 08:45 Famotidine (Pepcid) 40 mg DAILY10 PO ; Start 11/16/19 at 10:00 Ketorolac Tromethamine (Toradol 30mg Vial) 30 mg PRN Q6HRS PRN IVP PAIN Last administered on 11/16/19at 09:15; Start 11/16/19 at 09:00; Stop 11/21/19 at 08:59 Active Scripts Active Reported Lisinopril-Hctz 10-12.5 Mg Tab (Lisinopril/Hydrochlorothiazide) 1 Each Tablet 1 Tab PO DAILY Metformin Hcl 1,000 Mg Tablet 1,000 Mg PO BIDWMEALS Glimepiride 4 Mg Tablet 4 Mg PO BID Atorvastatin Calcium 20 Mg Tablet 1 Tab PO DAILY Allergies Allergies: Coded Allergies: No Known Drug Allergies (Unverified , 11/14/19) ROS General: No: Chills, Other (fevers ) PSYCHOLOGICAL ROS: No: Anxiety, Depression Eyes: No Blurry vision, No Double vision HEENT: YES: Heacaches; No: Sore Throat Hematological and Lymphatic: No: Bleeding Problems, Blood Clots Respiratory: No: Cough, Shortness of breath Cardiovascular: No Chest Pain, No Palpitations Gastrointestinal: Yes Other (see hpi) Genitourinary: No Dysuria, No Hematuria Musculoskeletal: No Joint Pain, No Muscle Pain Neurological: No Impaired Coord/balance, No Numbness/Tingling Skin: No Pruritus, No Rash Physical Exam General: Alert, Oriented X3, Cooperative HEENT: Atraumatic, Mucous membr. moist/pink Lungs: Clear to auscultation, Normal air movement Heart: Regular rate, Normal S1, Normal S2 Abdomen: Soft, Other (TTP upper abdomen ) Extremities: No clubbing, No cyanosis Skin: No rashes, No breakdown Neuro: Normal gait, Normal speech Psych/Mental Status: Mental status NL, Mood NL MUSCULOSKELETAL: No deformity, No swelling Vitals VITALS Vital Signs Date Time Temp Pulse Resp B/P (MAP) Pulse Ox O2 Delivery O2 Flow Rate FiO2 11/16/19 07:57 Room Air 11/16/19 07:00 97.5 67 137/85 (102) 94 97.5 11/16/19 03:00 20 Labs Labs Laboratory Tests Test 11/14/19 23:00 11/14/19 23:06 11/15/19 00:20 11/15/19 03:00 Prothrombin Time 12.3 SEC (11.7-14.0) Prothromb Time International Ratio 0.9 (0.8-1.1) Sodium Level 141 mmol/L (136-145) Potassium Level 3.5 mmol/L (3.5-5.1) Chloride Level 101 mmol/L (98-107) Carbon Dioxide Level 30 mmol/L (21-32) Anion Gap 10 (6-14) Blood Urea Nitrogen 14 mg/dL (8-26) Creatinine 0.8 mg/dL (0.7-1.3) Estimated GFR (Cockcroft-Gault) 105.0 BUN/Creatinine Ratio 18 (6-20) Glucose Level 261 mg/dL (70-99) Calcium Level 9.6 mg/dL (8.5-10.1) Magnesium Level 2.2 mg/dL (1.8-2.4) Total Bilirubin 0.4 mg/dL (0.2-1.0) Aspartate Amino Transf (AST/SGOT) 14 U/L (15-37) Alanine Aminotransferase (ALT/SGPT) 31 U/L (16-63) Alkaline Phosphatase 92 U/L (46-116) Creatine Kinase 39 U/L (39-308) Creatine Kinase MB (Mass) 0.8 ng/mL (0.0-3.6) Creatine Kinase MB Relative Index % (0-4) Troponin I Quantitative < 0.017 ng/mL (0.000-0.055) [id number]-Type Natriuretic Peptide 31 pg/mL (0-124) Total Protein 7.3 g/dL (6.4-8.2) Albumin 3.9 g/dL (3.4-5.0) Albumin/Globulin Ratio 1.1 (1.0-1.7) Lipase 79779 U/L (73-393) Thyroid Stimulating Hormone (TSH) 2.591 uIU/mL (0.358-3.74) Ethyl Alcohol Level < 10 mg/dL (0-10) White Blood Count 13.4 x10^3/uL (4.0-11.0) Red Blood Count 5.41 x10^6/uL (4.30-5.70) Hemoglobin 17.1 g/dL (13.0-17.5) Hematocrit 48.9 % (39.0-53.0) Mean Corpuscular Volume 90 fL (79-100) Mean Corpuscular Hemoglobin 32 pg (25-35) Mean Corpuscular Hemoglobin Concent 35 g/dL (31-37) Red Cell Distribution Width 13.1 % (11.5-14.5) Platelet Count 227 x10^3/uL (140-400) Neutrophils (%) (Auto) 62 % (31-73) Lymphocytes (%) (Auto) 27 % (24-48) Monocytes (%) (Auto) 8 % (0-9) Eosinophils (%) (Auto) 2 % (0-3) Basophils (%) (Auto) 1 % (0-3) Neutrophils # (Auto) 8.4 x10^3/uL (1.8-7.7) Lymphocytes # (Auto) 3.6 x10^3/uL (1.0-4.8) Monocytes # (Auto) 1.1 x10^3/uL (0.0-1.1) Eosinophils # (Auto) 0.3 x10^3/uL (0.0-0.7) Basophils # (Auto) 0.1 x10^3/uL (0.0-0.2) Urine Collection Type Unknown Urine Color Yellow Urine Clarity Clear Urine pH 6.5 Urine Specific [place] 1.010 Urine Protein Negative mg/dL (NEG-TRACE) Urine Glucose (UA) 250 mg/dL (NEG) Urine Ketones (Stick) Negative mg/dL (NEG) Urine Blood Negative (NEG) Urine Nitrite Negative (NEG) Urine Bilirubin Negative (NEG) Urine Urobilinogen Dipstick 1.0 mg/dL (0.2 mg/dL) Urine Leukocyte Esterase Negative (NEG) Urine RBC Rare /HPF (0-2) Urine WBC Rare /HPF (0-4) Urine Squamous Epithelial Cells Occ /LPF Urine Bacteria 0 /HPF (0-FEW) Urine Opiates Screen Neg (NEG) Urine Methadone Screen Neg (NEG) Urine Barbiturates Neg (NEG) Urine Phencyclidine Screen Neg (NEG) Urine Amphetamine/Methamphetamine Neg (NEG) Urine Benzodiazepines Screen Neg (NEG) Urine Cocaine Screen Neg (NEG) Urine Cannabinoids Screen Neg (NEG) Urine Ethyl Alcohol Neg (NEG) Lactic Acid Level 1.6 mmol/L (0.4-2.0) Test 11/15/19 12:42 11/16/19 04:05 11/16/19 09:04 Glucose (Fingerstick) 138 mg/dL (70-99) 93 mg/dL (70-99) White Blood Count 10.5 x10^3/uL (4.0-11.0) Red Blood Count 4.76 x10^6/uL (4.30-5.70) Hemoglobin 15.1 g/dL (13.0-17.5) Hematocrit 43.4 % (39.0-53.0) Mean Corpuscular Volume 91 fL (79-100) Mean Corpuscular Hemoglobin 32 pg (25-35) Mean Corpuscular Hemoglobin Concent 35 g/dL (31-37) Red Cell Distribution Width 12.8 % (11.5-14.5) Platelet Count 192 x10^3/uL (140-400) Neutrophils (%) (Auto) 65 % (31-73) Lymphocytes (%) (Auto) 26 % (24-48) Monocytes (%) (Auto) 7 % (0-9) Eosinophils (%) (Auto) 2 % (0-3) Basophils (%) (Auto) 0 % (0-3) Neutrophils # (Auto) 6.8 x10^3/uL (1.8-7.7) Lymphocytes # (Auto) 2.7 x10^3/uL (1.0-4.8) Monocytes # (Auto) 0.7 x10^3/uL (0.0-1.1) Eosinophils # (Auto) 0.2 x10^3/uL (0.0-0.7) Basophils # (Auto) 0.0 x10^3/uL (0.0-0.2) Sodium Level 141 mmol/L (136-145) Potassium Level 3.5 mmol/L (3.5-5.1) Chloride Level 103 mmol/L (98-107) Carbon Dioxide Level 29 mmol/L (21-32) Anion Gap 9 (6-14) Blood Urea Nitrogen 14 mg/dL (8-26) Creatinine 0.7 mg/dL (0.7-1.3) Estimated GFR (Cockcroft-Gault) 122.5 BUN/Creatinine Ratio 20 (6-20) Glucose Level 96 mg/dL (70-99) Calcium Level 8.9 mg/dL (8.5-10.1) Total Bilirubin 0.8 mg/dL (0.2-1.0) Aspartate Amino Transf (AST/SGOT) 12 U/L (15-37) Alanine Aminotransferase (ALT/SGPT) 21 U/L (16-63) Alkaline Phosphatase 69 U/L (46-116) Total Protein 6.2 g/dL (6.4-8.2) Albumin 3.1 g/dL (3.4-5.0) Albumin/Globulin Ratio 1.0 (1.0-1.7) Triglycerides Level 119 mg/dL (0-150) Cholesterol Level 103 mg/dL (0-200) LDL Cholesterol, Calculated 52 mg/dL (0-100) VLDL Cholesterol, Calculated 24 mg/dL (0-40) Non-HDL Cholesterol Calculated 76 mg/dL (0-129) HDL Cholesterol 27 mg/dL (40-60) Cholesterol/HDL Ratio 3.8 Lipase 585 U/L (73-393) Laboratory Tests Test 11/15/19 12:42 11/16/19 04:05 11/16/19 09:04 Glucose (Fingerstick) 138 mg/dL (70-99) 93 mg/dL (70-99) White Blood Count 10.5 x10^3/uL (4.0-11.0) Red Blood Count 4.76 x10^6/uL (4.30-5.70) Hemoglobin 15.1 g/dL (13.0-17.5) Hematocrit 43.4 % (39.0-53.0) Mean Corpuscular Volume 91 fL (79-100) Mean Corpuscular Hemoglobin 32 pg (25-35) Mean Corpuscular Hemoglobin Concent 35 g/dL (31-37) Red Cell Distribution Width 12.8 % (11.5-14.5) Platelet Count 192 x10^3/uL (140-400) Neutrophils (%) (Auto) 65 % (31-73) Lymphocytes (%) (Auto) 26 % (24-48) Monocytes (%) (Auto) 7 % (0-9) Eosinophils (%) (Auto) 2 % (0-3) Basophils (%) (Auto) 0 % (0-3) Neutrophils # (Auto) 6.8 x10^3/uL (1.8-7.7) Lymphocytes # (Auto) 2.7 x10^3/uL (1.0-4.8) Monocytes # (Auto) 0.7 x10^3/uL (0.0-1.1) Eosinophils # (Auto) 0.2 x10^3/uL (0.0-0.7) Basophils # (Auto) 0.0 x10^3/uL (0.0-0.2) Sodium Level 141 mmol/L (136-145) Potassium Level 3.5 mmol/L (3.5-5.1) Chloride Level 103 mmol/L (98-107) Carbon Dioxide Level 29 mmol/L (21-32) Anion Gap 9 (6-14) Blood Urea Nitrogen 14 mg/dL (8-26) Creatinine 0.7 mg/dL (0.7-1.3) Estimated GFR (Cockcroft-Gault) 122.5 BUN/Creatinine Ratio 20 (6-20) Glucose Level 96 mg/dL (70-99) Calcium Level 8.9 mg/dL (8.5-10.1) Total Bilirubin 0.8 mg/dL (0.2-1.0) Aspartate Amino Transf (AST/SGOT) 12 U/L (15-37) Alanine Aminotransferase (ALT/SGPT) 21 U/L (16-63) Alkaline Phosphatase 69 U/L (46-116) Total Protein 6.2 g/dL (6.4-8.2) Albumin 3.1 g/dL (3.4-5.0) Albumin/Globulin Ratio 1.0 (1.0-1.7) Triglycerides Level 119 mg/dL (0-150) Cholesterol Level 103 mg/dL (0-200) LDL Cholesterol, Calculated 52 mg/dL (0-100) VLDL Cholesterol, Calculated 24 mg/dL (0-40) Non-HDL Cholesterol Calculated 76 mg/dL (0-129) HDL Cholesterol 27 mg/dL (40-60) Cholesterol/HDL Ratio 3.8 Lipase 585 U/L (73-393) Images Images CT reviewed Assessment/Plan Assessment/Plan gallstone pancreatitis allow pancreatitis to resolve, lap brad once improved bowel rest, IV fluids, pain control SAMPSON VILLEGAS MD 11/16/19 1722: CONSULT Assessment/Plan Assessment/Plan pt seen last noc agree with plan will follow Thanks for consult JAIME DE ANDA APRN Nov 16, 2019 09:51 SMAPSON VILLEGAS MD Nov 16, 2019 17:22
[2019-11-16] MEDS: INSULIN GLARGINE SYRINGE. SQ SCH (10:00)
[2019-11-16 11:00] VITALS: BP 118/78
[2019-11-16] MEDS: FAMOTIDINE 20 MG TABLET. PO SCH (11:00)
--- NOTE | 2019-11-16 12:17 | PDOC ---
Subjective: Subjective: Say abdominal pain and headache are due to hunger. Also says might have surgery on Saturday. Objective: Vital Signs: Vital Signs Date Time Temp Pulse Resp B/P (MAP) Pulse Ox O2 Delivery O2 Flow Rate FiO2 11/16/19 07:57 Room Air 11/16/19 07:00 97.5 67 137/85 (102) 94 97.5 11/16/19 03:00 20 Labs: Laboratory Tests Test 11/15/19 12:42 11/16/19 04:05 11/16/19 09:04 11/16/19 11:41 Glucose (Fingerstick) 138 mg/dL 93 mg/dL 107 mg/dL White Blood Count 10.5 x10^3/uL Red Blood Count 4.76 x10^6/uL Hemoglobin 15.1 g/dL Hematocrit 43.4 % Mean Corpuscular Volume 91 fL Mean Corpuscular Hemoglobin 32 pg Mean Corpuscular Hemoglobin Concent 35 g/dL Red Cell Distribution Width 12.8 % Platelet Count 192 x10^3/uL Neutrophils (%) (Auto) 65 % Lymphocytes (%) (Auto) 26 % Monocytes (%) (Auto) 7 % Eosinophils (%) (Auto) 2 % Basophils (%) (Auto) 0 % Neutrophils # (Auto) 6.8 x10^3/uL Lymphocytes # (Auto) 2.7 x10^3/uL Monocytes # (Auto) 0.7 x10^3/uL Eosinophils # (Auto) 0.2 x10^3/uL Basophils # (Auto) 0.0 x10^3/uL Sodium Level 141 mmol/L Potassium Level 3.5 mmol/L Chloride Level 103 mmol/L Carbon Dioxide Level 29 mmol/L Anion Gap 9 Blood Urea Nitrogen 14 mg/dL Creatinine 0.7 mg/dL Estimated GFR (Cockcroft-Gault) 122.5 BUN/Creatinine Ratio 20 Glucose Level 96 mg/dL Calcium Level 8.9 mg/dL Total Bilirubin 0.8 mg/dL Aspartate Amino Transf (AST/SGOT) 12 U/L Alanine Aminotransferase (ALT/SGPT) 21 U/L Alkaline Phosphatase 69 U/L Total Protein 6.2 g/dL Albumin 3.1 g/dL Albumin/Globulin Ratio 1.0 Triglycerides Level 119 mg/dL Cholesterol Level 103 mg/dL LDL Cholesterol, Calculated 52 mg/dL VLDL Cholesterol, Calculated 24 mg/dL Non-HDL Cholesterol Calculated 76 mg/dL HDL Cholesterol 27 mg/dL Cholesterol/HDL Ratio 3.8 Lipase 585 U/L Imaging: US IMPRESSION: 1. Gallbladder sludge and small gravel-type stones. No inflammatory changes of the gallbladder evident. No biliary ductal dilation. 2. Increased liver echogenicity likely steatosis. CT A/P IMPRESSION: 1. Mild infiltration about the pancreatic head and body may be seen with acute pancreatitis. No definite loculated fluid collection or pancreatic hypoenhancement is seen. 2. No significant pleural effusion. Linear and wedge-shaped lung base opacities likely atelectasis/scarring. PE: GEN: NAD LUNGS: CTAB HEART: RRR ABD: epigastric tenderness NEURO/PSYCH: A & O 3 A/P: Pancreatitis Gallstones -- Could try clears from GI standpoint - defer to surgery. TOÑA SINGH Nov 16, 2019 12:17
[2019-11-16 15:00] VITALS: BP 143/74
[2019-11-16 19:00] VITALS: BP 116/70
[2019-11-16 23:00] VITALS: BP 117/75
[2019-11-16 23:07] LABS: HEMOGLOBIN A1C 8.4 % (4.8-5.6)
[2019-11-17 03:00] VITALS: BP 147/81
[2019-11-17] MEDS: HYDROmorphone 2 MG/ML VIAL IV PRN ×4 (05:59→23:59)
[2019-11-17] MEDS: POTASSIUM CL 20MEQ D5-0.45NACL 1,000 ML IV SCH ×2 (06:01→18:17)
[2019-11-17 07:00] VITALS: BP 138/74
[2019-11-17] MEDS: INSULIN GLARGINE SYRINGE. SQ SCH (08:08)
--- NOTE | 2019-11-17 08:25 | PDOC ---
Provider Note Provider Note afeb, bp ok, a1c 8.6 but glucose ok off meds so far- pain present but less- lipids/trigs good despite diabetes- plan for surg re stones, add cl diet for now- KYLEE PEREZ MD Nov 17, 2019 08:25
--- NOTE | 2019-11-17 09:35 | PDOC ---
JAIME DE ANDA OIL HEAT TECHNICIAN 11/17/19 0935: SURGICAL PROGRESS NOTE Subjective resting pain upper abdomen, some liquids asking about when surgery is Vital Signs Vital Signs Date Time Temp Pulse Resp B/P (MAP) Pulse Ox O2 Delivery O2 Flow Rate FiO2 11/17/19 07:00 97.6 55 17 138/74 (95) 98 Room Air 97.6 I&O Intake and Output 11/17/19 07:00 Intake Total 1000 ml Balance 1000 ml Intake IV Total 1000 ml # Voids 2 General: Alert, Oriented X3, Cooperative Abdomen: Soft, Other (TTP upper abdomen, more on RUQ, epigastric ) Labs Laboratory Tests Test 11/15/19 12:42 11/16/19 04:05 11/16/19 09:04 11/16/19 11:41 Glucose (Fingerstick) 138 mg/dL (70-99) 93 mg/dL (70-99) 107 mg/dL (70-99) White Blood Count 10.5 x10^3/uL (4.0-11.0) Red Blood Count 4.76 x10^6/uL (4.30-5.70) Hemoglobin 15.1 g/dL (13.0-17.5) Hematocrit 43.4 % (39.0-53.0) Mean Corpuscular Volume 91 fL (79-100) Mean Corpuscular Hemoglobin 32 pg (25-35) Mean Corpuscular Hemoglobin Concent 35 g/dL (31-37) Red Cell Distribution Width 12.8 % (11.5-14.5) Platelet Count 192 x10^3/uL (140-400) Neutrophils (%) (Auto) 65 % (31-73) Lymphocytes (%) (Auto) 26 % (24-48) Monocytes (%) (Auto) 7 % (0-9) Eosinophils (%) (Auto) 2 % (0-3) Basophils (%) (Auto) 0 % (0-3) Neutrophils # (Auto) 6.8 x10^3/uL (1.8-7.7) Lymphocytes # (Auto) 2.7 x10^3/uL (1.0-4.8) Monocytes # (Auto) 0.7 x10^3/uL (0.0-1.1) Eosinophils # (Auto) 0.2 x10^3/uL (0.0-0.7) Basophils # (Auto) 0.0 x10^3/uL (0.0-0.2) Sodium Level 141 mmol/L (136-145) Potassium Level 3.5 mmol/L (3.5-5.1) Chloride Level 103 mmol/L (98-107) Carbon Dioxide Level 29 mmol/L (21-32) Anion Gap 9 (6-14) Blood Urea Nitrogen 14 mg/dL (8-26) Creatinine 0.7 mg/dL (0.7-1.3) Estimated GFR (Cockcroft-Gault) 122.5 BUN/Creatinine Ratio 20 (6-20) Glucose Level 96 mg/dL (70-99) Hemoglobin A1c 8.4 % (4.8-5.6) Calcium Level 8.9 mg/dL (8.5-10.1) Total Bilirubin 0.8 mg/dL (0.2-1.0) Aspartate Amino Transf (AST/SGOT) 12 U/L (15-37) Alanine Aminotransferase (ALT/SGPT) 21 U/L (16-63) Alkaline Phosphatase 69 U/L (46-116) Total Protein 6.2 g/dL (6.4-8.2) Albumin 3.1 g/dL (3.4-5.0) Albumin/Globulin Ratio 1.0 (1.0-1.7) Triglycerides Level 119 mg/dL (0-150) Cholesterol Level 103 mg/dL (0-200) LDL Cholesterol, Calculated 52 mg/dL (0-100) VLDL Cholesterol, Calculated 24 mg/dL (0-40) Non-HDL Cholesterol Calculated 76 mg/dL (0-129) HDL Cholesterol 27 mg/dL (40-60) Cholesterol/HDL Ratio 3.8 Lipase 585 U/L (73-393) Test 11/16/19 16:49 11/16/19 20:56 11/17/19 07:42 Glucose (Fingerstick) 117 mg/dL (70-99) 94 mg/dL (70-99) 163 mg/dL (70-99) Laboratory Tests Test 11/16/19 11:41 11/16/19 16:49 11/16/19 20:56 11/17/19 07:42 Glucose (Fingerstick) 107 mg/dL (70-99) 117 mg/dL (70-99) 94 mg/dL (70-99) 163 mg/dL (70-99) Problem List Problems Medical Problems: (1) Gallstone pancreatitis Status: Acute Assessment/Plan check labs pending resolution of pancreatitits, then adrianna florese SAMPSON VILLEGAS MD 11/17/19 1522: SURGICAL PROGRESS NOTE Assessment/Plan pt seen in room offered l/s brad for tomorrow explained riks including but not limited to bleeding, infection. injury to bowel, liver or bile ducts with need for more surgery, drain, diarrhea, open procedure he will proceed JAIME DE ANDA APRN Nov 17, 2019 09:35 SAMPSON VILLEGAS MD Nov 17, 2019 15:22
[2019-11-17] MEDS: FAMOTIDINE 20 MG TABLET. PO SCH (10:03)
--- NOTE | 2019-11-17 10:36 | PDOC ---
Subjective: Subjective: Doesn't know if abd pain is better or the same, just had tray of clears delivered. Feels fatigued and doesn't want to do anything. Wants to know long- term complications of cholecystectomy. Asks to clarify difference between gastroenterology and surgery. present. Objective: Vital Signs: Vital Signs Date Time Temp Pulse Resp B/P (MAP) Pulse Ox O2 Delivery O2 Flow Rate FiO2 11/17/19 10:13 Room Air 11/17/19 07:00 97.6 55 17 138/74 (95) 98 97.6 Labs: Laboratory Tests Test 11/16/19 11:41 11/16/19 16:49 11/16/19 20:56 11/17/19 07:42 Glucose (Fingerstick) 107 mg/dL 117 mg/dL 94 mg/dL 163 mg/dL PE: GEN: NAD LUNGS: CTAB HEART: RRR ABD: soft, epigastric discomfort NEURO/PSYCH: A & O 3, drowsy A/P: Pancreatitis, gallstones - LFTs normal and lipase improved 11/16 (from 74814 to 500) -- Awaiting cholecystectomy. TOÑA SINGH Nov 17, 2019 10:35
[2019-11-17 11:00] VITALS: BP 138/91
[2019-11-17 11:33] LABS: BASO % 0 % (0-3); EOS # 0.3 x10^3/uL (0.0-0.7); EOS % 4 % (0-3); HEMATOCRIT 40.9 % (39.0-53.0); HEMOGLOBIN 14.4 g/dL (13.0-17.5); LYMPH # 2.9 x10^3/uL (1.0-4.8); LYMPH % 39 % (24-48); MEAN CORPUSCULAR HEMOGLOBIN 32 pg (25-35); MEAN CORPUSCULAR HGB CONC 35 g/dL (31-37); MEAN CORPUSCULAR VOLUME 90 fL (79-100); MONO # 0.6 x10^3/uL (0.0-1.1); MONO % 8 % (0-9); NEUT # 3.7 x10^3/uL (1.8-7.7); NEUT % 49 % (31-73); PLATELET COUNT 181 x10^3/uL (140-400); RED BLOOD COUNT 4.53 x10^6/uL (4.30-5.70); RED CELL DISTRIBUTION WIDTH 12.7 % (11.5-14.5); WHITE BLOOD COUNT 7.5 x10^3/uL (4.0-11.0)
[2019-11-17 11:49] LABS: ALBUMIN 2.8 g/dL (3.4-5.0); ALBUMIN/GLOBULIN RATIO 0.9 (1.0-1.7); CALCIUM 8.4 mg/dL (8.5-10.1); CREATININE 0.7 mg/dL (0.7-1.3); GFR 122.5; TOTAL BILIRUBIN 0.7 mg/dL (0.2-1.0); TOTAL PROTEIN 5.8 g/dL (6.4-8.2)
[2019-11-17] MEDS: KETOROLAC 30 MG/ML VIAL. IVP PRN (12:33)
[2019-11-17 15:00] VITALS: BP 147/83
[2019-11-17 19:00] VITALS: BP 139/80
[2019-11-17 23:00] VITALS: BP 135/67
[2019-11-18] VITALS (11 sets, daily range): BP systolic 116–140; BP diastolic 67–77
[2019-11-18] MEDS: KETOROLAC 30 MG/ML VIAL. IVP PRN ×3 (04:41→21:02)
[2019-11-18] MEDS ORDERED: ceFAZolin SODIUM 3 GM in IV DEXTROSE 5% 100ML 100 ML IV PRN (06:00)
[2019-11-18] MEDS ORDERED: LIDOCAINE 2% PF 5 ML VIAL. ONE ×2 (06:31→08:14)
[2019-11-18] MEDS ORDERED: PROPOFOL 20 ML IV ONE (06:31)
[2019-11-18] MEDS ORDERED: ONDANSETRON PF 4 MG/2 ML VIAL. ONE (06:31)
[2019-11-18] MEDS ORDERED: DEXAMETHASONE SOD PHOS 4 MG/ML VIAL ONE (06:31)
[2019-11-18] MEDS ORDERED: ROCURONIUM 50 MG/5 ML VIAL. ONE (06:31)
[2019-11-18] MEDS ORDERED: HYDROmorphone 2 MG/ML VIAL IV PRN ×2 (07:00→08:30)
[2019-11-18] MEDS ORDERED: IV RINGERS,LACTATED 1000ML 1,000 ML IV SCH (07:00)
[2019-11-18] MEDS ORDERED: fentaNYL PF VIAL 100 MCG/2 ML VIAL IV PRN (07:00)
[2019-11-18] MEDS ORDERED: ONDANSETRON PF 4 MG/2 ML VIAL. IV PRN (07:00)
[2019-11-18] MEDS ORDERED: PROCHLORPERAZINE 10 MG/2 ML VIAL. IV PRN (07:00)
[2019-11-18] MEDS ORDERED: BUPIVACAINE-EPI 0.5%-1:200000 MPF 30 ML VIAL. ONE (07:01)
[2019-11-18] MEDS ORDERED: GLUCAGON,HUMAN RECOMBINANT 1 MG/ML VIAL. ONE (07:01)
[2019-11-18] MEDS ORDERED: IOHEXOL 300 MG/ML 50 ML VIAL. ONE (07:01)
[2019-11-18] MEDS ORDERED: SURGICEL HEMOSTAT 4X8 EACH. ONE (07:02)
[2019-11-18] MEDS ORDERED: fentaNYL PF VIAL 100 MCG/2 ML VIAL ONE ×2 (07:06→08:17)
[2019-11-18] MEDS ORDERED: MIDAZOLAM HCL/PF 2 MG/2 ML VIAL. ONE (07:07)
[2019-11-18] MEDS ORDERED: ESMOLOL 100 MG/10 ML VIAL. IVP ONE (07:29)
[2019-11-18] MEDS ORDERED: SEVOFLURANE 61 TO 120 MINUTES. IH ONE (07:34)
[2019-11-18] MEDS ORDERED: PHENYLEPHRINE in 0.9% NACL PF 1 MG/10 ML SYRINGE. IV ONE (07:38)
[2019-11-18] MEDS ORDERED: GLYCOPYRROLATE 1 MG/5 ML VIAL. ONE (07:47)
[2019-11-18] MEDS ORDERED: NEOSTIGMINE METHYLSULFATE 5 MG/5 ML SYRINGE. ONE (07:48)
--- NOTE | 2019-11-18 08:07 | RAD ---
Examination: CHOLANGIOGRAM INTRAOPERATIVE History: Abdominal pain Comparison/Correlation: 11/15/2019 CT abdomen and pelvis with contrast Findings: Intraoperative cholangiogram was performed utilizing 13 seconds of fluoroscopy. A total of 2 images were provided. The first of the images as a heating element repairer view. Right upper quadrant surgical clips are present. On the second image, contrast is present within the common duct which has a normal caliber and no suspected filling defects. Cystic duct remnant is unremarkable. Intrahepatic biliary tree is unremarkable and the frontal image Impression: No stricture or suspicious filling defect. Electronically signed by: Jose Good MD (11/18/2019 8:04 AM) [facility]
[2019-11-18] MEDS ORDERED: PROCHLORPERAZINE 10 MG/2 ML VIAL. ONE (08:17)
[2019-11-18] MEDS ORDERED: IV NORMAL SALINE 1000ML BAG 1,000 ML IV SCH (08:18)
--- NOTE | 2019-11-18 08:26 | PDOC ---
BRIEF OPERATIVE NOTE Date: Nov 18, 2019 Pre-Op Diagnosis gallstone pancreatitis Post-Op Diagnosis same Procedure Performed l/s brad with karlos Surgeon Juan Outsole Caser Cheikh TROY Anesthesia Type: General Blood Loss 25cc IV Fluid 900cc Specimens Obtained GB Findings edematous GB, normal grams Complications none SAMPSON VILLEGAS MD Nov 18, 2019 08:26
--- NOTE | 2019-11-18 08:29 | PDOC ---
Provider Note Provider Note no temp, lipase normal, for lap brad today KYLEE PEREZ MD Nov 18, 2019 08:29
[2019-11-18] MEDS ORDERED: DEXTROSE 50% 25 GM / 50ML DISP.SYRIN. IV PRN (08:30)
[2019-11-18] MEDS ORDERED: IV DEXTROSE 5% 250 ML BAG. IV PRN (08:30)
[2019-11-18] MEDS ORDERED: oxyCODONE/APAP 5/325 1 TAB TABLET PO PRN (08:30)
[2019-11-18] MEDS ORDERED: 0.9 % SODIUM CHLORIDE 10 ML DISP.SYRIN. IV PRN (08:30)
[2019-11-18] MEDS ORDERED: NALOXONE 0.4 MG/ML VIAL. IV PRN (08:30)
[2019-11-18] MEDS ORDERED: ONDANSETRON PF 4 MG/2 ML VIAL. IVP PRN (08:30)
[2019-11-18] MEDS: fentaNYL PF VIAL 100 MCG/2 ML VIAL IV PRN ×2 (08:33→08:42)
[2019-11-18] MEDS ORDERED: INSULIN LISPRO 100 UNIT/ML 3ML VIAL for OP,RR ONLY. SQ PRN (08:45)
[2019-11-18] MEDS ORDERED: MORPHINE SULFATE 2 MG/ML VIAL. ONE (08:52)
[2019-11-18] MEDS: MORPHINE SULFATE 2 MG/ML VIAL. IV PRN ×2 (09:03→09:21)
--- NOTE | 2019-11-18 09:41 | OP ---
DATE OF SURGERY: 11/18/2019 PREOPERATIVE DIAGNOSIS: Gallstone pancreatitis. POSTOPERATIVE DIAGNOSIS: Gallstone pancreatitis. PROCEDURE: Laparoscopic cholecystectomy with cholangiogram. SURGEON: Jason Villegas MD EXHAUST TENDER: WOODROW Julien ANESTHESIA: General endotracheal. BLOOD LOSS: 25. INTRAVENOUS: 900. INDICATIONS: The patient is a 44-year-old, who was admitted with pancreatitis and a distended gallbladder. He is brought for cholecystectomy. OPERATIVE FINDINGS: The liver was smooth and sharp. The gallbladder was moderately edematous. Grams were normal. Visual inspection of the remainder of the abdomen failed to reveal obvious abnormalities. OPERATIVE REPORT: The patient brought to the operating suite, given a general endotracheal anesthetic, and the abdomen prepped and draped in the usual sterile fashion. A supraumbilical incision was infiltrated with local anesthetic, incised, and a 5 mm Visiport used to safely gain access into the abdominal cavity, taking care to avoid injury to abdominal contents. Pneumoperitoneum established. Camera inserted. Inspection carried out with results as noted above. With the table in reverse Trendelenburg rolled to the left, the epigastric, midclavicular and lateral ports were placed under direct vision. The gallbladder was retracted superolaterally and the cystic duct and cystic artery were identified. Duct was clipped on the gallbladder side. Cholangiograms were made. These were normal. In light of this, the catheter was removed. The cystic duct was clipped and divided, taking care to avoid injury or compromise the common duct. An anterior and posterior branch of the cystic artery were clipped and divided and gallbladder freed from the bed with cautery dissection and placed in an EndoCatch bag. Good hemostasis in the fossa and no evidence of bile leak seen. A 19-Polish round Juan drain was brought through the epigastric port out the lateral port, sewn to the skin with a silk stitch and left in the subhepatic space for postoperative drainage. Table returned to level. Gallbladder delivered through the epigastric incision. Epigastric incision closed with interrupted 0 Vicryl suture. Intra-abdominal pressure decreased to 6 cm of water. No bleeding from the epigastric closure or from the midclavicular port site after its removal or from the drain site. Abdomen decompressed, camera slowly removed, no bleeding seen. Skin incisions closed with subcuticular 4-0 Monocryl. Steri-Strips and sterile dressings applied. The patient was awakened from his anesthetic and taken to the recovery room in satisfactory condition. JASON VILLEGAS MD DR: RADHA/vidhi JOB#: [id number] / [id number]
[2019-11-18] MEDS: INSULIN GLARGINE SYRINGE. SQ SCH (10:00)
[2019-11-18] MEDS: oxyCODONE/APAP 5/325 1 TAB TABLET PO PRN ×2 (10:12→17:39)
[2019-11-18] MEDS: DOCUSATE SODIUM 100 MG CAPSULE. PO SCH ×2 (10:12→20:59)
[2019-11-18] MEDS: POTASSIUM CL 20MEQ-0.45% NACL 1,000 ML IV SCH ×2 (10:13→17:39)
[2019-11-18] MEDS: ENOXAPARIN 40 MG/0.4 ML SYRINGE. SQ SCH (10:13)
[2019-11-18] MEDS: FAMOTIDINE 20 MG TABLET. PO SCH (10:13)
--- NOTE | 2019-11-18 12:01 | PDOC ---
Objective: Vital Signs: Vital Signs Date Time Temp Pulse Resp B/P (MAP) Pulse Ox O2 Delivery O2 Flow Rate FiO2 11/18/19 11:15 Room Air 11/18/19 11:03 72 140/74 (96) 88 11/18/19 10:34 98.4 98.4 11/18/19 09:41 15 2.0 Labs: Laboratory Tests Test 11/17/19 16:59 11/17/19 21:08 11/18/19 06:07 11/18/19 08:37 Glucose (Fingerstick) 150 mg/dL 176 mg/dL 149 mg/dL 187 mg/dL Test 11/18/19 10:14 Glucose (Fingerstick) 155 mg/dL Imaging: IOC 11/18 Impression: No stricture or suspicious filling defect. PE: out of room A/P: Gallstone pancreatitis s/p cholecystectomy -- Normal IOC as above, will follow. Hemodynamically unstable?: No Is patient in severe pain?: No Is NPO status required?: No TOÑA SINGH Nov 18, 2019 12:01
[2019-11-18] MEDS: HYDROmorphone 2 MG/ML VIAL IV PRN (18:37)
[2019-11-19] MEDS: oxyCODONE/APAP 5/325 1 TAB TABLET PO PRN ×4 (02:32→18:15)
[2019-11-19 03:00] VITALS: BP 133/72
[2019-11-19] MEDS: POTASSIUM CL 20MEQ-0.45% NACL 1,000 ML IV SCH ×2 (05:30→17:02)
[2019-11-19 07:00] VITALS: BP 124/76
[2019-11-19] MEDS: INSULIN GLARGINE SYRINGE. SQ SCH (08:08)
[2019-11-19] MEDS: DOCUSATE SODIUM 100 MG CAPSULE. PO SCH ×2 (08:10→20:30)
[2019-11-19] MEDS: FAMOTIDINE 20 MG TABLET. PO SCH (08:10)
[2019-11-19] MEDS: ENOXAPARIN 40 MG/0.4 ML SYRINGE. SQ SCH (08:11)
--- NOTE | 2019-11-19 08:41 | PDOC ---
Provider Note Provider Note stable, vss, labs ok, orders per surgery- path pending, lipase noted Hemodynamically unstable?: No Is patient in severe pain?: No Is NPO status required?: No KYLEE PEREZ MD Nov 19, 2019 08:41
[2019-11-19 11:00] VITALS: BP 131/74
--- NOTE | 2019-11-19 11:43 | PDOC ---
JAIME DE ANDA KOSHER DIETARY SERVICE SUPERVISOR 11/19/19 1143: SURGICAL PROGRESS NOTE Subjective resting pain, gas ambulated x 1 d/w nursing still taking IV meds Vital Signs Vital Signs Date Time Temp Pulse Resp B/P (MAP) Pulse Ox O2 Delivery O2 Flow Rate FiO2 11/19/19 09:28 Room Air 11/19/19 07:00 97.7 59 16 124/76 (92) 94 97.7 11/18/19 09:41 2.0 I&O Intake and Output 11/19/19 07:00 Intake Total 3180 ml Output Total 110 ml Balance 3070 ml Intake Oral 780 ml IV Total 2400 ml Output Gastric Drainage Total 30 ml Drainage Total 30 ml Estimated Blood Loss 50 ml # Voids 5 General: Alert, Oriented X3, Cooperative Abdomen: Soft, Other (lap dressings dry, diann serosang ) Labs Laboratory Tests Test 11/17/19 16:59 11/17/19 21:08 11/18/19 06:07 11/18/19 08:37 Glucose (Fingerstick) 150 mg/dL (70-99) 176 mg/dL (70-99) 149 mg/dL (70-99) 187 mg/dL (70-99) Test 11/18/19 10:14 11/18/19 16:46 11/18/19 20:31 11/19/19 07:52 Glucose (Fingerstick) 155 mg/dL (70-99) 176 mg/dL (70-99) 193 mg/dL (70-99) 130 mg/dL (70-99) Laboratory Tests Test 11/18/19 16:46 11/18/19 20:31 11/19/19 07:52 Glucose (Fingerstick) 176 mg/dL (70-99) 193 mg/dL (70-99) 130 mg/dL (70-99) Problem List Problems Medical Problems: (1) Gallstone pancreatitis Status: Acute Assessment/Plan s/p brad d/w pt need to walk more, try to limit to oral meds drain for now SAMPSON VILLEGAS MD 11/19/19 1154: SURGICAL PROGRESS NOTE Assessment/Plan pt seen and examined agree with above hopefully be able to discharge tomorrow JAIME DE ANDA APRN Nov 19, 2019 11:43 SAMPSON VILLEGAS MD Nov 19, 2019 11:54
--- NOTE | 2019-11-19 12:34 | PDOC ---
Subjective: Subjective: Abdomen sore, tolerating full liquids, passing lots of gas, going to get out of bed an d"not feel sorry for myself," hopeful to DC tomorrow. Objective: Vital Signs: Vital Signs Date Time Temp Pulse Resp B/P (MAP) Pulse Ox O2 Delivery O2 Flow Rate FiO2 11/19/19 12:30 Room Air 11/19/19 07:00 97.7 59 16 124/76 (92) 94 97.7 11/18/19 09:41 2.0 Labs: Laboratory Tests Test 11/18/19 16:46 11/18/19 20:31 11/19/19 07:52 11/19/19 11:54 Glucose (Fingerstick) 176 mg/dL 193 mg/dL 130 mg/dL 196 mg/dL PE: GEN: NAD LUNGS: CTAB HEART: RRR ABD: sore in epigastrium and around REHAN, good BS NEURO/PSYCH: A & O 3 A/P: Gallstone pancreatitis s/p cholecystectomy -- Continue per surgery. Hemodynamically unstable?: No Is patient in severe pain?: No Is NPO status required?: No TOÑA SINGH Nov 19, 2019 12:34
[2019-11-19] MEDS ORDERED: HYDROmorphone 2 MG/ML VIAL IV PRN (14:00)
[2019-11-19 15:00] VITALS: BP 145/70
[2019-11-19] MEDS ORDERED: POLYETHYLENE GLYCOL 3350 17 GM PACKET. PO PRN (17:00)
--- NOTE | 2019-11-19 17:06 | PATHOLOGY ---
[facility] Accession Number: [id number] . 01 Material submitted: . gallbladder - GALLBLADDER WITH CONTENTS . 01 Clinical history: . Gallstone pancreatitis . 02 Diagnosis: Gallbladder, laparoscopic cholecystectomy: - Cholesterolosis, polypoid, focal. - Chronic cholecystitis. . ([facility]:mm; 11/19/2019) [facility] 11/19/2019 1546 Local . 02 Comment: There are no calculi identified within the gallbladder lumen or specimen container. There is no evidence of malignancy. . ([facility]:mm; 11/19/2019) . 02 Electronically signed: . Job Presley MD, Pathologist NPI- [id number] . 01 Gross description: . The specimen is received in formalin labeled "[place], [place], gallbladder with contents" and consists of a punctured deflated green sneed gallbladder measuring 8.3 x 3.0 x 1.0 cm. The margin is inked black. Opening reveals a lumen filled with green bile and no calculi. No calculi are identified within the container. The mucosa is green-brown with scattered yellow specks and an average wall thickness of 0.1 cm. No masses are identified. Cut Off Saw Operator sections are submitted in A1. ([facility]; 11/18/2019) SYU/SYU 11/18/2019 1710 Local . 02 Pathologist provided ICD-10: K80.10 . 02 CPT . 161579 Specimen Comment: A courtesy copy of this report has been sent to [phone], [phone] Specimen Comment: [id number] Specimen Comment: Report sent to / DR PEREZ Performed at: [address], [place], [place] [id number] MD Neo Gasca MD Phone: [phone] Performed at: [address] [id number] MD Job Presley MD Phone: [phone]
[2019-11-19 19:00] VITALS: BP 145/55
[2019-11-19 23:59] VITALS: BP 133/82
[2019-11-20] MEDS: oxyCODONE/APAP 5/325 1 TAB TABLET PO PRN ×3 (02:06→16:07)
[2019-11-20 03:00] VITALS: BP 137/85
[2019-11-20 07:00] VITALS: BP 160/80
[2019-11-20] MEDS: INSULIN GLARGINE SYRINGE. SQ SCH (07:48)
[2019-11-20] MEDS: ENOXAPARIN 40 MG/0.4 ML SYRINGE. SQ SCH (07:51)
[2019-11-20] MEDS: FAMOTIDINE 20 MG TABLET. PO SCH (07:53)
[2019-11-20] MEDS: DOCUSATE SODIUM 100 MG CAPSULE. PO SCH (07:53)
[2019-11-20] MEDS: POTASSIUM CL 20MEQ-0.45% NACL 1,000 ML IV SCH (07:54)
--- NOTE | 2019-11-20 08:12 | PDOC ---
Provider Note Provider Note [id number] Hemodynamically unstable?: No Is patient in severe pain?: No Is NPO status required?: No KYLEE PEREZ MD Nov 20, 2019 08:12
--- NOTE | 2019-11-20 08:27 | DS ---
DATE OF DISCHARGE: 11/20/2019 HOSPITAL SUMMARY: A 44-year-old white male admitted with abdominal pain and lipase of 25,000 consistent with acute pancreatitis. CT scan showed mild signs of pancreatitis and he had small gravel type stones and sludge in the gallbladder on sonogram. The lipase improved quickly with IV fluids and supportive care. Blood sugars remained normal as did other laboratory studies during the hospital stay. Hemoglobin A1c was 8.4 consistent with outpatient values. Urine drug screen was negative. After his pancreatitis subsided, he was taken to surgery by Dr. Martinez and laparoscopic cholecystectomy was performed and he is doing well and is back on diet and able to be discharged later today should the surgeons be comfortable with that. FINAL DIAGNOSES: 1. Acute pancreatitis secondary to transient choledocholithiasis. 2. Gallstones and chronic cholecystitis. OPERATIONS AND PROCEDURES: Laparoscopic cholecystectomy. COMPLICATIONS: None. DISPOSITION: Continue same home meds for blood pressure, lipids and diabetes and pain meds for postoperative management per Dr. Martinez. He will follow up in our office as scheduled for diabetes and return to work when Dr. Martinez is comfortable with his recovery. KYLEE PEREZ MD DR: KELSI/vihdi JOB#: [id number] / [id number]
[2019-11-20 11:00] VITALS: BP 142/77
[2019-11-20] MEDS ORDERED: BISACODYL 10 MG SUPP.RECT. PR PRN (11:00)
[2019-11-20] MEDS ORDERED: MINERAL OIL 133 ML ENEMA. PR ONE (11:00)
--- NOTE | 2019-11-20 11:21 | PDOC ---
Subjective: Subjective: Wants to go home but doesn't want to santos it, doesn't want to go w/ drain. Tolerating diet but would like different food. Gas, no stool, taking Miralax. Pain comes and goes, probably better overall. Objective: Vital Signs: Vital Signs Date Time Temp Pulse Resp B/P (MAP) Pulse Ox O2 Delivery O2 Flow Rate FiO2 11/20/19 08:52 18 94 Room Air 11/20/19 07:00 98.0 53 160/80 (106) 98.0 Labs: Laboratory Tests Test 11/19/19 11:54 11/19/19 16:35 11/19/19 20:45 11/20/19 07:42 Glucose (Fingerstick) 196 mg/dL 169 mg/dL 185 mg/dL 97 mg/dL PE: GEN: NAD - watching tv, sleeping in recliner LUNGS: CTAB HEART: RRR ABD: NABS, soft, left tender, REHAN serosang NEURO/PSYCH: A & O 3 A/P: Gallstone pancreatitis s/p cholecystectomy -- Dc per primary/surgery. Discussed taking Miralax as needed while taking pain meds - looks like hasn't taken here (ordered PRN) but took Colace. Hemodynamically unstable?: No Is patient in severe pain?: No Is NPO status required?: No TOÑA SINGH Nov 20, 2019 11:21
--- NOTE | 2019-11-20 12:07 | NUR ---
SW following. Discussed with RN, pt from home. Has REHAN drain. RN advised no SW needs.
[2019-11-20] MEDS ORDERED: POLY17PO28 PO (13:50)
[2019-11-20] MEDS ORDERED: OXYC1TAB15 PO (13:50)
[2019-11-20] MEDS ORDERED: DOCU-153 PO (13:50)
--- NOTE | 2019-11-20 14:06 | PDOC ---
SURGICAL PROGRESS NOTE Subjective no stool yet + flatus ambulating Vital Signs Vital Signs Date Time Temp Pulse Resp B/P (MAP) Pulse Ox O2 Delivery O2 Flow Rate FiO2 11/20/19 11:00 98.2 52 16 142/77 (98) 94 Room Air 98.2 I&O Intake and Output 11/20/19 07:00 Intake Total 620 ml Output Total 210 ml Balance 410 ml Intake Oral 620 ml Drainage Total 210 ml # Voids 5 General: Alert, Oriented X3, Cooperative Abdomen: Soft, Other (drain serosang ) Labs Laboratory Tests Test 11/18/19 16:46 11/18/19 20:31 11/19/19 07:52 11/19/19 11:54 Glucose (Fingerstick) 176 mg/dL (70-99) 193 mg/dL (70-99) 130 mg/dL (70-99) 196 mg/dL (70-99) Test 11/19/19 16:35 11/19/19 20:45 11/20/19 07:42 11/20/19 11:26 Glucose (Fingerstick) 169 mg/dL (70-99) 185 mg/dL (70-99) 97 mg/dL (70-99) 151 mg/dL (70-99) Laboratory Tests Test 11/19/19 16:35 11/19/19 20:45 11/20/19 07:42 11/20/19 11:26 Glucose (Fingerstick) 169 mg/dL (70-99) 185 mg/dL (70-99) 97 mg/dL (70-99) 151 mg/dL (70-99) Problem List Problems Medical Problems: (1) Gallstone pancreatitis Status: Acute Assessment/Plan s/p brad would rec continue laxatives, stool softeners at home limit narcotics dc drain, ok from surgical pov to dc home JAIME DE ANDA MENTAL HEALTH CONSULTANT Nov 20, 2019 14:06
== END 2019-11-20 16:50 | disposition home or self-care (01) | DRG 418 ==
LOC: ER 22:41 → 5 SOUTH 11-15 02:06
PROVIDERS: ADMIT Family Medicine; ATTEND Family Medicine
PROC: BF100ZZ Fluoroscopy of Bile Ducts using High Osmolar Contrast (ICD-10-PCS; 2019-11-18)
PROC: 0FT44ZZ Resection of Gallbladder, Percutaneous Endoscopic Approach (ICD-10-PCS; principal; 2019-11-18 07:30)
DX: K85.10 Biliary acute pancreatitis without necrosis or infection (principal); J98.11 Atelectasis; K80.64 Calculus of gallbladder and bile duct with chronic cholecystitis without obstruction; I10 Essential (primary) hypertension; E11.9 Type 2 diabetes mellitus without complications; E78.00 Pure hypercholesterolemia, unspecified; E78.5 Hyperlipidemia, unspecified; G43.909 Migraine, unspecified, not intractable, without status migrainosus
CPT/HCPCS: 36415; 74177; 74300; 76705; 80053; 80061; 80307; 81001; 82553; 82962; 83036; 83605; 83690; 83735; 83880; 84443; 84484; 85025; 85610; 88304; 93005; 96374; 96375; A7015; G0480; J0690; J0780; J1100; J1170; J1610; J1650; J1815; J1885; J2001; J2250; J2270; J2370; J2405; J2543; J2704; J2710; J3010; J3490; J7030; J7120; Q9966; Q9967; 99285-25; G0378